=== PATIENT | female | born 1965 | race Caucasian/White ===

== ENCOUNTER → 2019-01-05 | Outpatient (CLI) | payer OTHER | LOC: M.ULTRA 15:51 | DX: R22.31 Localized swelling, mass and lump, right upper limb (principal) ==

== ENCOUNTER → 2019-01-23 | Outpatient (CLI) | payer OTHER | LOC: M.ULTRA 07:55 | DX: L04.9 Acute lymphadenitis, unspecified (principal) ==

== ENCOUNTER → 2019-03-31 | Outpatient (CLI) | payer OTHER | LOC: M.CT 02-02 16:00 | DX: R91.1 Solitary pulmonary nodule (principal); E78.5 Hyperlipidemia, unspecified; M19.90 Unspecified osteoarthritis, unspecified site; M47.9 Spondylosis, unspecified; F32.9 Major depressive disorder, single episode, unspecified; Z80.3 Family history of malignant neoplasm of breast; Z79.899 Other long term (current) drug therapy ==

== ENCOUNTER → 2019-05-05 | Outpatient (CLI) | payer OTHER | LOC: M.ULTRA 08:26 | DX: R22.9 Localized swelling, mass and lump, unspecified (principal) ==

== ENCOUNTER → 2019-05-28 | Day surgery (SDC) | payer OTHER ==
[~2019-05-28] VITALS: Ht 162.6 cm; Wt 90.7 kg
[~2019-05-28] MED LIST: CRESTOR10 MG PO; LASIX 20 MG TAB20 MG PO; LISINOPRIL10 MG PO; RESTORIL30 MG PO; ZYRTEC10 M2 PO
[2019-05-28 10:23] LABS: HEMATOCRIT 41.3 % (37.0-47.0); HEMOGLOBIN 14.3 gm/dL (12.0-15.0); MCH 29.1 pg (26.0-34.0); MCHC 34.7 g/dL (28.0-37.0); MCV 83.7 fL (80.0-100.0); MPV 7.3 fl. (7.2-11.1); RBC 4.94 mil/uL (4.20-5.00); RDW-CV 13.8 % (10.5-14.5)
[2019-05-28 10:31] LABS: CALCIUM 9.3 mg/dL (8.5-10.1); CREATININE 0.8 mg/dL (0.6-1.3); POTASSIUM 4.1 mmol/L (3.5-5.1)
[2019-05-28 10:35] LABS: ALBUMIN 4.2 g/dL (3.4-5.0); TOTAL BILIRUBIN 0.6 mg/dL (<0.1-1.0); TOTAL PROTEIN 7.4 g/dL (6.4-8.2)
--- NOTE | 2019-05-28 18:06 | EKG ---
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[facility] : 1965 Requested By: Azra Lopez Order Number: [id number] MD: Jaspreet Peterson Measurements Intervals Leupp Rate: 66 P: 48 NH: 152 QRS: 14 QRSD: 102 T: 29 QT: 400 QTc: 420 Interpretive Statements Sinus rhythm RSR' in V1 or V2, right VCD or RVH No previous ECG available for comparison Electronically Signed On 05-28-2019 18:06:01 CDT by Jaspreet Peterson [email or web address] <ELECTRONICALLY SIGNED> By: Honey Peterson MD, MERGED WITH [facility] 05/28/19 1806 1015 1015 Honey Peterson MD, MERGED WITH [facility] /EPI
--- NOTE | 2019-06-02 13:07 | PATH ---
[facility] [address] [place] [address] PATHOLOGY RPT PROCEDURE Name: NAOMI JUAN Room: [facility]..#: [id number] Admission: 05/28/19 Date of : 65 Discharge: Report #: [id number] Path Case #: [id number] [facility] Accession Number: [id number] . 01 Material submitted: . axillary tail of breast - RIGHT AXILLARY MASS. Modifiers: right . 01 Clinical history: . Right axillary mass . 02 Diagnosis: Right axillary mass: - Benign fibrofatty tissue. See comment. . (PRECIOUS:mirza; 06/01/2019) QMS 06/01/2019 1458 Local . 02 Comment: No breast epithelial tissues are identified. . (PRECIOUS:mirza; 06/01/2019) . 02 Electronically signed: . Calin Beckett MD, Pathologist NPI- [id number] . 01 Gross description: . The specimen is received in formalin, labeled "Naomi Juan, right axillary mass". Received are multiple segments of yellow-soni lobulated tissue measuring 6.6 x 5.9 x 3.2 cm in aggregate dimensions. Sectioning reveals bright yellow, lobulated cut surfaces throughout with no grossly distinct nodules or lesions. The specimen is submitted representatively in cassettes A1 and A2. ([facility]; 05/31/2019) . After initial microscopic examination, underwriting sales representative sections of most visible non-fatty tissues are submitted in cassettes A3 and A4. ([facility]; 06/01/2019) QA/QA 06/01/2019 [facility]5 Local . 02 Pathologist provided ICD-10: I89.9 . 02 CPT . 551300 Specimen Comment: A courtesy copy of this report has been sent to Specimen Comment: [phone], . Specimen Comment: Report sent to / [place] [address] PATHOLOGY RPT PROCEDURE Name: NAOMI JUAN Room: [facility]#: [id number] Admission: 05/28/19 Date of : 65 Discharge: Report #: [id number] Path Case #: [id number] Performed at: 01 [facility] [place] [address], [place], [place] [id number] MD Clifford [place] MD Phone: [phone] Performed at: 02 [facility] [address], [place], [place] [id number] MD Calin Beckett MD Phone: [phone]
--- NOTE | 2019-06-04 07:38 | OP ---
[facility] [address] [place] [address] OPERATIVE REPORT Name: TRAVIS HU Room: [facility].#: [id number] Admission: 05/28/19 Attend Phys: Isreal Lopez Discharge: Date of : 65 Report #: [id number] THIS REPORT FOR: //name// CC: Isreal Gainesfl DATE OF SERVICE: 05/28/2019 PREOPERATIVE DIAGNOSIS: Right axillary mass. POSTOPERATIVE DIAGNOSIS: Right axillary mass. OPERATION: Excision of right axillary mass. SURGEON: Isreal Lopez MD ANESTHESIA: General. ESTIMATED BLOOD LOSS: Minimal. SPECIMEN: Right axillary mass. DESCRIPTION OF PROCEDURE: After informed consent was obtained, the patient was brought to the operating room and placed supine. SCDs were placed and working, preoperative antibiotics were administered, general anesthesia was induced. The right axilla was prepped and draped in the usual sterile fashion. A 5 cm incision was made over the right axilla. Cautery dissection was made down through the subcutaneous tissue. There was felt to be a lipoma. This measured approximately 5 x 5 cm. This was carefully dissected around with cautery. It was excised. The area was then copiously irrigated with normal saline. Skin was then closed in 2 layers with 3-0 Vicryl for the deep layer and 4-0 Monocryl in running subcuticular fashion for the skin. SPECIMEN: None. DISPOSITION: The patient was taken to recovery in satisfactory condition. <ELECTRONICALLY SIGNED> By: Isreal Lopez MD 06/04/19 0738 [id number] Lopez MD /nt
== END | disposition home or self-care (01) ==
LOC: M.SUR 08:07
PROVIDERS: Family Medicine
DX: R22.2 Localized swelling, mass and lump, trunk (principal); D17.1 Benign lipomatous neoplasm of skin and subcutaneous tissue of trunk; Z79.899 Other long term (current) drug therapy; Z98.890 Other specified postprocedural states